=== PATIENT | male | born 1985 | race Caucasian/White ===

== ENCOUNTER 2017-03-02 15:51 | Emergency (ER) | payer BC ==
[2017-03-02 16:08] VITALS: BP 145/75
--- NOTE | 2017-03-02 16:35 | EDM.PDOC ---
ED HPI ENT - General Chief Complaint: ENT Problem Stated Complaint: EAR PAIN,THROAT PAIN Time Seen by Provider: 03/02/17 16:13 Source: Reports: Patient History Limitations: Reports: No limitations - History of Present Illness INITIAL COMMENTS - FREE TEXT/NARRATIVE: Rai presents today with complaints of bilateral ear pain since November. He reports he went to the clinic and was treated for ear infection with augmentin. He states he took the medication as prescribed. He also reports decrease in hearing with his pain. Timing/Duration: Reports: Week(s): Severity: moderate Location: Reports: right Ear, left Ear Quality: Reports: Ache, Throbbing Improves with: Reports: None Associated symptoms: Reports: denies other symptoms - Related Data Allergies/ADRs: Allergies Allergy/AdvReac Type Severity Reaction Status Date / Time No Known Allergies Allergy Verified 03/02/17 16:09 Home Meds: Home Meds NK [No Known Home Meds] 03/02/17 [History] Social & Family History - Tobacco Use Smoking Status *Q: Never Smoker ED ROS ENT - Review of Systems Review Of Systems: See Below Constitutional: Denies: fever, chills, malaise, weakness, fatigue HEENT: Reports: Ear pain, Hearing loss, Throat pain. Denies: Dental pain, Ear discharge, Eye discharge, Eye pain, Nosebleed, Rhinitis, Sinus problem, Throat swelling, Vertigo Respiratory: Reports: No Symptoms Cardiovascular: Reports: No symptoms Endocrine: Reports: no symptoms GI/Abdominal: Reports: No symptoms : Reports: no symptoms Musculoskeletal: Reports: no symptoms Skin: Reports: no symptoms Neurological: Reports: No Symptoms. Denies: Dizziness, Headache, Numbness, Syncope Psychiatric: Reports: No symptoms Hematologic/Lymphatic: Reports: no symptoms Immunologic: Reports: no symptoms ED EXAM, ENT - Physical Exam Exam: See Below Exam Limited By: No limitations General Appearance: alert, WD/WN, no apparent distress Eye Exam: bilateral eye: normal inspection, PERRL Ears: normal external exam, normal canal, hearing loss, auricular tenderness, TM dullness, other (Bilateral tympanic membranes dark brown in color with multiple small yellow circular patches. No drainage or perforations noted. ). No: mastoid swelling, mastoid tenderness, canal foreign body, TM perforation Nose: normal inspection, normal mucousa, no blood, nasal tenderness Mouth/Throat: Normal inspection, Normal gums, Normal lips. No: Oral ulcers, Pharyngeal erythema, Tonsillar erythema, Tonsillar exudates, Tonsillar swelling Head: atraumatic, normocephalic Neck: normal inspection, supple, non-tender, full range of motion. No: lymphadenopathy (R), lymphadenopathy (L) Respiratory/Chest: no respiratory distress, lungs clear, normal breath sounds, no accessory muscle use, chest non-tender. No: respiratory distress, crackles, rales, rhonchi, wheezing Cardiovascular: normal peripheral pulses, regular rate, rhythm, no edema, no murmur, no rub Back: normal inspection, full range of motion Extremities: normal inspection, normal range of motion, non-tender, no pedal edema, normal capillary refill Neurological: alert, oriented, CN II-XII intact, normal cognition, normal gait, normal reflexes, no motor/sensory deficits Skin: Warm, Dry, Intact, Normal color, No rash Lymphatic: no adenopathy Course - Vital Signs Last Recorded V/S: Last Vital Signs Temp 37.1 C 03/02/17 16:14 Pulse 74 03/02/17 16:14 Resp 16 03/02/17 16:14 BP 145/75 H 03/02/17 16:14 Pulse Ox 95 03/02/17 16:14 - Orders/Labs/Meds Orders: Active Orders 24 hr Category Date Time Status CULTURE STREP A CONFIRMATION [] Stat Lab 03/02/17 16:10 Results STREP SCRN A RAPID W CULT CONF [] Stat Lab 03/02/17 16:10 Results Meds: Medications Discontinued Medications Generic Name Dose Route Start Last Admin Trade Name Bruno PRN Reason Stop Dose Admin Ceftriaxone Sodium 1 gm 03/02/17 16:46 03/02/17 17:02 Rocephin IM 03/02/17 16:47 1 gm ONETIME ONE Administration Lidocaine HCl Confirm 03/02/17 16:58 03/02/17 17:02 Xylocaine-Mpf 1% Administered 03/02/17 16:59 5 ml Dose Administration 5 ml .ROUTE .STK-MED ONE - Re-Assessments/Exams Free Text/Narrative Re-Assessment/Exam: 03/02/17 16:59 Patient will be given Rocephin 1 gram IM in emergency room. He will be provided instymed for Azithromycin 500mg PO daily for 6 days. He will be discharged to home with instructions for otitis media. 03/02/17 17:11 Patient is in agreement with plan. Departure - Departure Time of Disposition: 17:11 Disposition: Home, Self-Care 01 Condition: good Clinical Impression: Otitis media Instructions: Otitis Media, Adult Referrals: Jigar Mason MD [Primary Care Provider] - Forms: ED Department Discharge Additional Instructions: You may take ibuprofen 800mg by mouth three times a day as needed for pain. You can also take acetaminophen 650mg by mouth ever 4 to 6 hours as needed for pain. Use fluticasone nasal spray, 2 sprays to each nare once a day for 14 days, this may help with eustachian (ear tube) tube dysfunction. You can use it in the morning or at bedtime, pick which times works the best for your. Loratadine 10mg, one tablet daily. This is an antihistamine that may also help with seasonal allergy/congestion symptoms. I would also take this medication for at least 14 days. Pseudoephedrine 30mg tablet, one tablet every 6 hours as needed. This medication can help with congestion. It can also make your heart rate speed up and make you feel jittery. Do not drink caffeine when you use it. Take the provided antibiotic, Azithromycin 500mg by mouth once a day for 6 days. You received an IM injection of Rocephin 1 gram while in the ER. You were previously treated with Augmentin in November for otitis media. 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 Return for worsening of symptoms.
[2017-03-02] MEDS ORDERED: cefTRIAXone 1 GM Vial IM ONE (16:46)
== END 2017-03-02 17:25 | disposition home or self-care (01) ==
LOC: JP.ED 15:51
DX: H66.93 Otitis media, unspecified, bilateral (principal)
CPT/HCPCS: 87081; 87430; 96372; 99283; J0696